=== PATIENT | female | born 1955 | race Caucasian/White ===

== ENCOUNTER → 2016-12-24 | Outpatient (CLI) | payer OTHER ==
[~2016-12-24] MED LIST: ABILIFY20 MG PO; ATIVAN 0.50.5 MG/TAB PO; ATIVAN 1MG T1 MG/TAB PO; CELEXA40 MG PO; COLACE 100100 MG/CAP PO; COLESTID 1GM1 G PO; COZAAR 25MG25 MG/TAB PO; CYTOMEL 2525 MCG/TAB PO; CYTOMEL0.05 MG PO; ESTRACE PO; FORFIVO XL450 MG PO; KLONOPIN 1MG1 MG PO; LAMICTAL 100MG100 MG PO; PRIL40 PO; PROMETRIUM100 MG/CAP PO; SEROQUEL50 MG PO; SYNTHROID0.05 MG/TA PO; TOPROL XL 25MG25 MG PO; TOPROL XL25 MG PO; ZOLOFT 100MG100 MG PO
== END ==
LOC: BHSO 14:49
DX: F33.2 Major depressive disorder, recurrent severe without psychotic features (principal)

== ENCOUNTER → 2017-01-14 | Outpatient (CLI) | payer OTHER | LOC: BHSO 14:48 | DX: F33.2 Major depressive disorder, recurrent severe without psychotic features (principal) ==

== ENCOUNTER → 2017-01-20 | Outpatient (CLI) | payer OTHER | LOC: BHSO 16:28 | DX: F41.1 Generalized anxiety disorder (principal) ==

== ENCOUNTER → 2017-01-28 | Outpatient (CLI) | payer OTHER | LOC: BHSO 15:54 | DX: F33.2 Major depressive disorder, recurrent severe without psychotic features (principal) ==

== ENCOUNTER → 2017-02-23 | Outpatient (REF) ==
[2017-02-23 12:00] LABS: THYROID STIMULATING HORMONE 4.6 uIU/mL (0.465-4.680)
== END ==
LOC: ZLAB.WCH 10:21
PROVIDERS: Internal Medicine
DX: Z01.89 Encounter for other specified special examinations (principal)

== ENCOUNTER → 2017-02-25 | Outpatient (CLI) | payer OTHER | LOC: BHSO 15:59 | DX: F33.2 Major depressive disorder, recurrent severe without psychotic features (principal) ==

== ENCOUNTER → 2017-03-08 | Outpatient (CLI) | payer OTHER | LOC: BHSO 16:01 | DX: F33.1 Major depressive disorder, recurrent, moderate (principal) ==

== ENCOUNTER → 2017-03-24 | Outpatient (CLI) | payer OTHER | LOC: BHSO 15:58 | DX: F33.2 Major depressive disorder, recurrent severe without psychotic features (principal) ==

== ENCOUNTER 2017-04-08 09:31 | Observation (INO) | payer OTHER ==
[~2017-04-08] VITALS: Ht 160 cm; Wt 90.1 kg
[~2017-04-08 09:31] MED LIST changes: -ABILIFY20 MG PO; -COLACE 100100 MG/CAP PO; -COLESTID 1GM1 G PO; -COZAAR 25MG25 MG/TAB PO; -FORFIVO XL450 MG PO; -KLONOPIN 1MG1 MG PO; -LAMICTAL 100MG100 MG PO; -PRIL40 PO; -SYNTHROID0.05 MG/TA PO; -TOPROL XL 25MG25 MG PO; -ZOLOFT 100MG100 MG PO
[2017-04-08] MEDS ORDERED: COZAAR 25MG25 MG/TAB PO (10:11)
[2017-04-08] MEDS ORDERED: LAMICTAL 100MG100 MG PO ×2 (10:12→10:13)
[2017-04-08] MEDS ORDERED: ABILIFY20 MG PO (10:14)
[2017-04-08] MEDS ORDERED: TOPROL XL 25MG25 MG PO (10:14)
[2017-04-08] MEDS ORDERED: ZOLOFT 100MG100 MG PO (10:15)
[2017-04-08] MEDS ORDERED: FORFIVO XL450 MG PO (10:15)
[2017-04-08] MEDS ORDERED: SYNTHROID0.05 MG/TA PO (10:15)
[2017-04-08] MEDS ORDERED: PRIL40 PO (10:16)
[2017-04-08] MEDS ORDERED: COLESTID 1GM1 G PO (10:17)
[2017-04-08 10:25] LABS: BASO % 0.5 % (0.0-2.0); EOS # 0.1 (0.0-0.7); EOS % 1.5 % (0-4.0); GRAN # 4.3 (1.4-6.5); GRAN % 74.5 % (42.2-75.2); HEMOGLOBIN 12.4 g/dl (12.5-16.0); LYMPH # 0.9 (1.2-3.4); MEAN CELL VOLUME 85 fl (80.0-100.0); MEAN CORPUSCULAR HEMOGLOBIN 29 pg (27.0-31.0); MEAN CORPUSCULAR HGB CONC 34 g/dl (33.0-37.0); MEAN PLATELET VOLUME 8.8 fl (7.4-10.4); MONO # 0.4 (0.1-0.6); MONO % 6.5 % (1.7-9.3); PLATELET COUNT 196 K/mm3 (130-400); RED BLOOD COUNT 4.33 M/mm3 (4.10-5.30); REDCELL DISTRIBUTION WIDTH-CV 14.4 % (11.5-14.5); WHITE BLOOD COUNT 5.8 K/mm3 (4.8-10.8)
[2017-04-08 10:27] LABS: HEMATOCRIT 36.7 % (37.0-47.0)
[2017-04-08 10:28] LABS: INR 1.1 (0.8-3.0); PROTHROMBIN TIME 11.8 SECONDS (9.7-12.8)
[2017-04-08 10:31] LABS: PARTIAL THROMBOPLASTIN TIME 29.9 SECONDS (26.0-37.0)
[2017-04-08 10:37] LABS: ADJUSTED CALCIUM 8.8 mg/dL (8.4-10.2); ALANINE AMINOTRANSFERASE 23 U/L (9-52); ALBUMIN 4.4 gm/dL (3.5-5.0); ALKALINE PHOSPHATASE 61 U/L (50-136); ANION GAP 10 mmol/L (7-16); BILIRUBIN,TOTAL 0.6 mg/dL (0.0-1.0); BLOOD UREA NITROGEN 20 mg/dL (7-17); CALCIUM 9.1 mg/dL (8.4-10.2); CARBON DIOXIDE 27 mmol/L (22-30); CHLORIDE 95 mmol/L (98-107); CREATININE, serum 1.04 mg/dL (0.52-1.25); GLUCOSE 118 mg/dL (74-106); LIPASE 111 U/L (23-300); POTASSIUM 4.3 mmol/L (3.4-5.0); SODIUM 132 mmol/L (137-145); TOTAL PROTEIN 7.3 gm/dL (6.4-8.2)
[2017-04-08 10:39] LABS: C-REACTIVE PROTEIN < 0.5 mg/dL (0.0-0.9)
[2017-04-08 10:46] LABS: B-TYPE NATRIURETIC PEPTIDE 73 pg/mL (0-125); TROPONIN-I < 0.012 ng/mL (0.000-0.034)
[2017-04-08] MEDS ORDERED: KLONOPIN 1MG1 MG PO ×2 (13:23)
[2017-04-08] MEDS ORDERED: COLACE 100100 MG/CAP PO (13:43)
[2017-04-08 14:05] VITALS: BP 134/73; PULSE 69; PULSE 71; TEMP 97.4
[2017-04-08 16:55] VITALS: BP 132/71; PULSE 69; TEMP 97.6
[2017-04-08 19:58] VITALS: BP 130/76; PULSE 79; TEMP 98.7
[2017-04-08 23:34] VITALS: BP 132/64; PULSE 68; TEMP 98.5
[2017-04-09] VITALS (10 sets, daily range): BP systolic 125–153; BP diastolic 63–91; PULSE 62–77; TEMP 98.4
[2017-04-09 06:53] LABS: INR 1.1 (0.8-3.0); PROTHROMBIN TIME 12.4 SECONDS (9.7-12.8)
[2017-04-09 06:56] LABS: HEMOGLOBIN 12.2 g/dl (12.5-16.0); MEAN CELL VOLUME 85 fl (80.0-100.0); MEAN CORPUSCULAR HEMOGLOBIN 28 pg (27.0-31.0); MEAN CORPUSCULAR HGB CONC 33 g/dl (33.0-37.0); MEAN PLATELET VOLUME 9.1 fl (7.4-10.4); PARTIAL THROMBOPLASTIN TIME 29.4 SECONDS (26.0-37.0); PLATELET COUNT 206 K/mm3 (130-400); RED BLOOD COUNT 4.31 M/mm3 (4.10-5.30); REDCELL DISTRIBUTION WIDTH-CV 14.6 % (11.5-14.5); WHITE BLOOD COUNT 4.9 K/mm3 (4.8-10.8)
[2017-04-09 07:01] LABS: HEMATOCRIT 36.7 % (37.0-47.0)
[2017-04-09 07:55] LABS: CREATININE, serum 0.85 mg/dL (0.52-1.25); POTASSIUM 4.4 mmol/L (3.4-5.0)
== END 2017-04-09 16:05 | disposition home or self-care (01) ==
LOC: COL.ER 09:31 → SDCO 11:10 → COL.ER 11:10 → MEDICAL 11:10
PROVIDERS: Emergency Medicine; Internal Medicine Cardiovascular Disease
DX: R07.9 Chest pain, unspecified (principal); F41.8 Other specified anxiety disorders; I10 Essential (primary) hypertension; K21.9 Gastro-esophageal reflux disease without esophagitis; E03.9 Hypothyroidism, unspecified; E78.5 Hyperlipidemia, unspecified
CPT/HCPCS: 99223-AI; A9270-GY; C1725; C1760; C1769; C1894; G0378; J2250; J3010; J7030; Q9967

== ENCOUNTER → 2017-04-16 | Outpatient (CLI) | payer OTHER ==
[~2017-04-16] MED LIST changes: +ABILIFY20 MG PO; +COLACE 100100 MG/CAP PO; +COLESTID 1GM1 G PO; +COZAAR 25MG25 MG/TAB PO; +FORFIVO XL450 MG PO; +KLONOPIN 1MG1 MG PO; +LAMICTAL 100MG100 MG PO; +PRIL40 PO; +SYNTHROID0.05 MG/TA PO; +TOPROL XL 25MG25 MG PO; +ZOLOFT 100MG100 MG PO
== END ==
LOC: BHSO 09:59
DX: F33.2 Major depressive disorder, recurrent severe without psychotic features (principal)

== ENCOUNTER → 2017-04-20 | Outpatient (CLI) | payer OTHER | LOC: BHSO 13:40 | DX: F41.1 Generalized anxiety disorder (principal) ==

== ENCOUNTER → 2017-05-04 | Outpatient (CLI) | payer OTHER | LOC: BHSO 15:58 | DX: F33.2 Major depressive disorder, recurrent severe without psychotic features (principal) ==

== ENCOUNTER → 2017-05-26 | Outpatient (CLI) | payer OTHER | LOC: BHSO 09:56 | DX: F33.2 Major depressive disorder, recurrent severe without psychotic features (principal) ==

== ENCOUNTER → 2017-06-09 | Outpatient (CLI) | payer OTHER | LOC: BHSO 10:00 | DX: F33.2 Major depressive disorder, recurrent severe without psychotic features (principal) ==

== ENCOUNTER → 2017-07-01 | Outpatient (CLI) | payer OTHER | LOC: BHSO 14:21 | DX: F41.1 Generalized anxiety disorder (principal) ==

== ENCOUNTER → 2017-07-13 | Outpatient (REF) ==
[2017-07-13 20:01] LABS: THYROID STIMULATING HORMONE 2.36 uIU/mL (0.465-4.680)
== END ==
LOC: ZLAB.WCH 18:15
PROVIDERS: Internal Medicine
DX: Z01.89 Encounter for other specified special examinations (principal)

== ENCOUNTER → 2017-08-25 | Outpatient (CLI) | payer BC, OTHER | LOC: BHSO 10:03 | DX: F33.2 Major depressive disorder, recurrent severe without psychotic features (principal) ==

== ENCOUNTER → 2017-09-03 | Outpatient (CLI) | payer BC, OTHER | LOC: BHSO 15:36 | DX: F90.9 Attention-deficit hyperactivity disorder, unspecified type (principal) ==

== ENCOUNTER → 2017-09-15 | Outpatient (CLI) | payer BC, OTHER | LOC: BHSO 15:47 | DX: F33.2 Major depressive disorder, recurrent severe without psychotic features (principal) ==

== ENCOUNTER → 2017-10-12 | Outpatient (CLI) | payer BC, OTHER | LOC: BHSO 09:17 | DX: F33.1 Major depressive disorder, recurrent, moderate (principal) ==

== ENCOUNTER → 2017-10-26 | Outpatient (CLI) | payer BC, OTHER | LOC: BHSO 15:00 | DX: F33.1 Major depressive disorder, recurrent, moderate (principal) ==

== ENCOUNTER → 2017-11-30 | Outpatient (CLI) | payer BC, OTHER | LOC: BHSO 14:53 | DX: F33.2 Major depressive disorder, recurrent severe without psychotic features (principal) ==

== ENCOUNTER → 2017-12-27 | Outpatient (CLI) | payer BC, OTHER | LOC: BHSO 15:47 | DX: F33.1 Major depressive disorder, recurrent, moderate (principal) ==

== ENCOUNTER → 2018-02-17 | Outpatient (CLI) | payer BC | LOC: BHSO 08:15 | DX: F33.1 Major depressive disorder, recurrent, moderate (principal) | CPT/HCPCS: G0463 ==

== ENCOUNTER → 2018-02-24 | Outpatient (CLI) | payer BC | LOC: BHSO 15:08 | DX: F33.1 Major depressive disorder, recurrent, moderate (principal) ==

== ENCOUNTER → 2018-04-04 | Outpatient (CLI) | payer BC | LOC: BHSO 10:18 | DX: F41.1 Generalized anxiety disorder (principal) | CPT/HCPCS: G0463 ==

== ENCOUNTER → 2018-04-06 | Outpatient (CLI) | payer BC | LOC: BHSO 15:53 | DX: F33.2 Major depressive disorder, recurrent severe without psychotic features (principal) ==

== ENCOUNTER → 2018-04-28 | Outpatient (REF) ==
[2018-04-28 15:09] LABS: THYROID STIMULATING HORMONE 3.68 uIU/mL (0.465-4.680)
== END ==
LOC: ZLAB.WCH 14:16
PROVIDERS: Internal Medicine
DX: Z01.89 Encounter for other specified special examinations (principal)

== ENCOUNTER → 2018-05-09 | Outpatient (CLI) | payer BC | LOC: BHSO 13:07 | DX: F33.1 Major depressive disorder, recurrent, moderate (principal) ==

== ENCOUNTER → 2018-06-06 | Outpatient (CLI) | payer BC | LOC: BHSO 09:55 | DX: F33.2 Major depressive disorder, recurrent severe without psychotic features (principal) ==

== ENCOUNTER → 2018-06-07 | Outpatient (CLI) | payer BC | LOC: BHSO 11:16 | DX: F41.1 Generalized anxiety disorder (principal) | CPT/HCPCS: G0463 ==

== ENCOUNTER → 2018-06-21 | Outpatient (CLI) | payer BC | LOC: BHSO 11:02 | DX: F33.2 Major depressive disorder, recurrent severe without psychotic features (principal) ==

== ENCOUNTER → 2018-08-16 | Outpatient (CLI) | payer BC | LOC: BHSO 15:54 | DX: F33.2 Major depressive disorder, recurrent severe without psychotic features (principal) ==

== ENCOUNTER → 2018-08-30 | Outpatient (CLI) | payer BC | LOC: BHSO 15:56 | DX: F33.2 Major depressive disorder, recurrent severe without psychotic features (principal) ==

== ENCOUNTER → 2018-09-06 | Outpatient (CLI) | payer BC | LOC: BHSO 16:18 | DX: F41.1 Generalized anxiety disorder (principal) | CPT/HCPCS: G0463 ==

== ENCOUNTER → 2018-09-27 | Outpatient (CLI) | payer BC | LOC: BHSO 08:15 | DX: F33.42 Major depressive disorder, recurrent, in full remission (principal) | CPT/HCPCS: G0463 ==

== ENCOUNTER → 2018-09-29 | Outpatient (CLI) | payer BC | LOC: BHSO 15:58 | DX: F33.1 Major depressive disorder, recurrent, moderate (principal) ==

== ENCOUNTER → 2018-12-19 | Outpatient (REF) ==
[2018-12-19 09:40] LABS: THYROID STIMULATING HORMONE 1.49 uIU/mL (0.465-4.680)
== END ==
LOC: ZLAB.WCH 08:40
PROVIDERS: Internal Medicine
DX: Z01.89 Encounter for other specified special examinations (principal)

== ENCOUNTER → 2018-12-27 | Outpatient (CLI) | payer BC | LOC: BHSO 16:23 | DX: F41.1 Generalized anxiety disorder (principal) | CPT/HCPCS: G0463 ==

== ENCOUNTER → 2019-03-22 | Outpatient (CLI) | payer BC | LOC: BHSO 16:11 | DX: F41.1 Generalized anxiety disorder (principal) | CPT/HCPCS: G0463 ==

== ENCOUNTER → 2019-04-14 | Outpatient (CLI) | payer BC | LOC: BHSO 15:18 | DX: F41.1 Generalized anxiety disorder (principal) | CPT/HCPCS: G0463 ==

== ENCOUNTER → 2019-05-17 | Outpatient (CLI) | payer BC | LOC: ZCOL.LAB 16:15 | DX: L30.9 Dermatitis, unspecified (principal) ==

== ENCOUNTER → 2019-05-23 | Outpatient (CLI) | payer BC | LOC: BHSO 09:32 | DX: F33.41 Major depressive disorder, recurrent, in partial remission (principal) | CPT/HCPCS: G0463 ==

== ENCOUNTER → 2019-08-18 | Outpatient (CLI) | payer BC, OTHER | LOC: BHSO 10:00 | DX: F33.1 Major depressive disorder, recurrent, moderate (principal) ==

== ENCOUNTER → 2019-08-25 | Outpatient (CLI) | payer BC, OTHER | LOC: BHSO 10:52 | DX: F33.41 Major depressive disorder, recurrent, in partial remission (principal) | CPT/HCPCS: G0463 ==

== ENCOUNTER → 2019-09-01 | Outpatient (CLI) | payer BC, OTHER | LOC: BHSO 10:51 | DX: F41.1 Generalized anxiety disorder (principal) ==

== ENCOUNTER → 2019-09-22 | Outpatient (CLI) | payer OTHER | LOC: BHSO 10:41 | DX: F33.1 Major depressive disorder, recurrent, moderate (principal) ==

== ENCOUNTER → 2020-08-21 | Outpatient (CLI) | payer MEDICARE, BC | LOC: BHSO 13:43 | DX: F33.42 Major depressive disorder, recurrent, in full remission (principal) | CPT/HCPCS: G0463 ==

== ENCOUNTER 2021-06-12 10:45 | Outpatient (RCR) | payer MEDICARE, BC | END 2021-07-28 | disposition home or self-care (01) | LOC: WSST | DX: R41.841 Cognitive communication deficit (principal); R41.3 Other amnesia ==

== ENCOUNTER 2021-10-02 23:55 | Observation (INO) | payer MEDICARE, BC ==
--- NOTE | 2021-10-03 01:45 | NUR ---
Arrived to unit via EMS, awake, alert, oriented x 4, able to ambulate with steady gait, speech slurred but can make needs known, updated on plan of care, verbalizes understanding, assessment completed at this time.
[2021-10-03] MEDS ORDERED: NORVASC 5MG5 MG/TAB PO (01:50)
[2021-10-03] MEDS ORDERED: COZAAR 50MG50 MG/TAB PO (01:51)
[2021-10-03] MEDS ORDERED: ASPIRIN 81M81 MG/TA2 PO (01:52)
[2021-10-03] MEDS ORDERED: WELLBUTRIN XL150 MG PO (01:52)
[2021-10-03] MEDS ORDERED: ARICEPT10 MG PO (01:53)
[2021-10-03] MEDS ORDERED: KLONOPIN 0.5MG0.5 MG PO ×2 (01:54)
[2021-10-03] MEDS ORDERED: DESYREL 50MG50 MG PO (01:55)
[2021-10-03] MEDS ORDERED: PRISTIQ100 MG PO (01:57)
[2021-10-03 04:43] VITALS: BP 129/67; PULSE 52; TEMP 97.9
[2021-10-03 07:03] LABS: BASO % 0.6 % (0.0-2.0); EOS # 0.2 K/mm3 (0.0-0.7); EOS % 2.5 % (0-4.0); GRAN # 3.6 K/mm3 (1.4-6.5); GRAN % 56.9 % (42.2-75.2); LYMPH # 2.1 K/mm3 (1.2-3.4); LYMPH % 32.7 % (20.0-51.0); MEAN CELL VOLUME 85 fl (80.0-100.0); MEAN CORPUSCULAR HEMOGLOBIN 28 pg (27.0-31.0); MEAN CORPUSCULAR HGB CONC 33 g/dl (33.0-37.0); MEAN PLATELET VOLUME 9.2 fl (7.4-10.4); MONO # 0.5 K/mm3 (0.1-0.6); PLATELET COUNT 210 K/mm3 (130-400); REDCELL DISTRIBUTION WIDTH-CV 14.1 % (11.5-14.5)
[2021-10-03 07:08] LABS: HEMATOCRIT 36.7 % (37.0-47.0)
[2021-10-03 07:23] LABS: CALCIUM 9.2 mg/dL (8.4-10.2); CHOLESTEROL RISK RATIO 4.5; CREATININE, serum 0.91 mg/dL (0.57-1.11); POTASSIUM 3.8 mmol/L (3.5-4.5)
[2021-10-03 07:41] VITALS: BP 142/70; PULSE 64; TEMP 97.9
--- NOTE | 2021-10-03 08:51 | NUR ---
Pt awake and alert upon entry, no C/O pain at this time. Shift assessment complete. Left Pt call light in reach, bed in lowest position.
[2021-10-03 12:20] VITALS: BP 128/70; PULSE 61; TEMP 97.9
--- NOTE | 2021-10-03 15:28 | NUR ---
supervisor park workers met with patient to discuss discharge plan. Patient lives with her Bill [phone]. Patient reports that she is fully independent with her ADL's and does not utilize any DME to assist with mobility. Patient does not currently use O2 at home and not sure if she will need it upon dc. Patient is noncompliant with her CPAP due to anxiety. States that her PCP is urging her to have a sleep study but the sleep lab is booked out. She is not currently on a wait list. PCP is and she utilizes [facility] for medications with no cost difficulty. Patient is unsure if she has a DPOA-HC but she knows she has Advanced Directives along with a DNR. Discharge plan: Home with
[2021-10-03 16:35] VITALS: BP 135/64; PULSE 64; TEMP 98.4
[2021-10-03 20:23] VITALS: BP 138/73; PULSE 64; TEMP 97.8
[2021-10-03] MEDS ORDERED: LIPITOR 40MG TA40 MG PO (21:11)
--- NOTE | 2021-10-03 21:55 | NUR ---
Patient discharged at this time, INT removed w/o issue, discharge instructions, medications reviewed with patient and , verbalizes understanding, VS stable, patient opted to ambulate with off unit to family car with all belongings.
== END 2021-10-03 22:12 | disposition home or self-care (01) ==
LOC: MEDICAL 23:55
PROVIDERS: Physician Assistant; ADMIT Internal Medicine
DX: R47.01 Aphasia (principal); I10 Essential (primary) hypertension; K21.9 Gastro-esophageal reflux disease without esophagitis; E03.9 Hypothyroidism, unspecified; E11.9 Type 2 diabetes mellitus without complications; G47.33 Obstructive sleep apnea (adult) (pediatric); F41.9 Anxiety disorder, unspecified; F32.A Depression, unspecified; Z79.01 Long term (current) use of anticoagulants; Z79.890 Hormone replacement therapy; Z79.82 Long term (current) use of aspirin; Z79.899 Other long term (current) drug therapy; Z91.19 Patient's noncompliance with other medical treatment and regimen
CPT/HCPCS: 99223-AI; 99239; A9585; G0378

== ENCOUNTER 2024-08-18 17:56 | Emergency (ER) | payer MEDICARE, BC ==
[~2024-08-18] VITALS: Ht 160 cm; Wt 65.9 kg
[~2024-08-18 17:56] MED LIST changes: +ARICEPT10 MG PO; +ASPIRIN 81M81 MG/TA2 PO; +COZAAR 50MG50 MG/TAB PO; +DESYREL 50MG50 MG PO; +KLONOPIN 0.5MG0.5 MG PO; +LIPITOR 40MG TA40 MG PO; +NORVASC 5MG5 MG/TAB PO; +PRISTIQ100 MG PO; +WELLBUTRIN XL150 MG PO
[2024-08-18 17:59] VITALS: TEMP 98.4
[2024-08-18] MEDS ORDERED: LORazepam 2 MG/ML 1 ML VIAL IV ONE (18:30)
[2024-08-18] MEDS ORDERED: NS 1,000 ML IV ONE (18:30)
[2024-08-18 18:42] LABS: COLLECTION METHOD CLEAN CATCH
[2024-08-18 18:47] LABS: BASO # 0.1 K/mm3 (0.0-0.2); BASO % 0.7 % (0.0-2.0); EOS # 0.1 K/mm3 (0.0-0.7); EOS % 1.1 % (0.0-4.0); GRAN # 7.5 K/mm3 (1.4-6.5); HEMATOCRIT 39.7 % (37.0-47.0); HEMOGLOBIN 13.3 g/dl (12.5-16.0); LYMPH # 2.7 K/mm3 (1.2-3.4); LYMPH % 23.9 % (20.0-51.0); MEAN CELL VOLUME 86 fl (80.0-100.0); MEAN CORPUSCULAR HEMOGLOBIN 29 pg (27-31); MEAN CORPUSCULAR HGB CONC 34 g/dl (33.0-37.0); MEAN PLATELET VOLUME 9.5 fl (7.4-10.4); MONO # 0.9 K/mm3 (0.1-0.6); PLATELET COUNT 331 K/mm3 (130-400); RED BLOOD COUNT 4.63 M/mm3 (4.10-5.30); REDCELL DISTRIBUTION WIDTH-CV 16.3 % (11.5-14.5)
[2024-08-18 18:56] LABS: PH 6.5 (5.0-8.5); URINE APPEARANCE CLEAR (CLEAR/HAZY); URINE BLOOD NEGATIVE (NEGATIVE); URINE COLOR YELLOW (YELLOW); URINE GLUCOSE 3+ (NEGATIVE); URINE KETONE NEGATIVE (NEGATIVE); URINE NITRATE NEGATIVE (NEGATIVE); URINE PROTEIN(semi-quant) TRACE (NEGATIVE)
[2024-08-18 19:03] LABS: ALBUMIN 3.8 g/dL (3.4-4.8); BILIRUBIN,TOTAL 0.5 mg/dL (0.2-1.2); C-REACTIVE PROTEIN 0.17 mg/dL (0.00-0.50); CALCIUM 9.8 mg/dL (8.4-10.2); CREATININE, serum 1.08 mg/dL (0.57-1.11); POTASSIUM 3.2 mEq/L (3.5-4.5)
[2024-08-18 20:06] VITALS: BP 166/89; PULSE 63
== END 2024-08-18 20:06 | disposition home or self-care (01) ==
LOC: COL.ER 17:56
PROVIDERS: Emergency Medicine
DX: F41.9 Anxiety disorder, unspecified (principal); T42.4X5A Adverse effect of benzodiazepines, initial encounter; F32.A Depression, unspecified; Z79.899 Other long term (current) drug therapy
CPT/HCPCS: J2060; J7030